=== PATIENT | male | born 1990 | race African-American/Black ===

== ENCOUNTER 2018-01-19 02:34 | Emergency (ER) | payer SELFPAY ==
[~2018-01-19] VITALS: Ht 165.1 cm; Wt 59.9 kg
[2018-01-19] MEDS ORDERED: IBUPROFEN 400 MG TABLET ONE (03:11)
[2018-01-19] MEDS ORDERED: IBUPROFEN 400 MG TABLET PO ONE (03:30)
[2018-01-19 04:00] VITALS: BP 126/68
== END 2018-01-19 04:04 | disposition home or self-care (01) ==
LOC: ER 02:37
DX: R51 Headache (principal); F17.200 Nicotine dependence, unspecified, uncomplicated
CPT/HCPCS: 99282; A4606; Z7610